=== PATIENT | female | born 1995 | race African-American/Black ===

== ENCOUNTER 2016-12-24 06:52 | Emergency (ER) | payer OTHER ==
[~2016-12-24] VITALS: Ht 165.1 cm; Wt 63.5 kg
== END 2016-12-24 09:02 | disposition home or self-care (01) ==
LOC: CED 06:52
DX: J02.0 Streptococcal pharyngitis (principal); F17.200 Nicotine dependence, unspecified, uncomplicated
CPT/HCPCS: 87880; 96372; 99283; J0561